=== PATIENT | male | born 1995 | race Caucasian/White ===

== ENCOUNTER → 2018-06-06 | Outpatient (CLI) | payer OTHER ==
[2018-06-06 17:50] LABS: RHEUMATOID FACTOR QUANT 19.2 IU/ML (<15.0)
[2018-06-06 18:03] LABS: ERYTHROCYTE SEDIMENTATION RATE 1 mm/hr (0-15)
[2018-06-12 01:40] LABS: ANCA-ATYPICAL <1:20 titer (Neg:<1:20); ANGIOTENSIN 1 CONVERTING ENZYM 32 U/L (14-82); ANTINUCLEAR ANTIBODIES DIRECT Negative (Negative); ASPERGILLUS FLAVUS ABY Negative (Neg:<1:1); ASPERGILLUS FUMIGATUS ABY Negative (Neg:<1:1); ASPERGILLUS NIGER ABY Negative (Neg:<1:1); BLASTOMYCES ANTIBODY LEVEL Negative (Neg:<1:1); COCCIDIOMYCOSIS ANTIBODY 0.3 IV (<=0.9); CRYPTOCOCCUS ANTIGEN SER Negative (Negative); CYTOPLASMIC NEUTROP AB ANCA-C <1:20 titer (Neg:<1:20); HISTOPLASMOSIS ANTIBODY Negative (Neg:<1:1); PERINUCLEAR AB ANCA-P <1:20 titer (Neg:<1:20); SJOGREN'S ANTI SS-A <0.2 AI (0.0-0.9); SJOGREN'S ANTI SS-B <0.2 AI (0.0-0.9)
[2018-06-13 14:11] LABS: ASPERGILLUS FUMIGATUS AB Negative (Negative); AUREOBASIDIUM PULLULANS Negative (Negative); MICROPOLYSPORA FAENI AB Negative (Negative); PIGEON SERUM AB Negative (Negative); THERMOACTINOMYCES SACCHARI Negative (Negative); THERMOACTINOMYCES VULGARIS Negative (Negative)
== END ==
LOC: M SMT 15:18
DX: R91.8 Other nonspecific abnormal finding of lung field (principal)

== ENCOUNTER → 2018-06-17 | Outpatient (CLI) | payer OTHER ==
[2018-06-17 17:32] LABS: ALBUMIN/GLOBULIN RATIO 1.79 (1.00-1.93); ALKALINE PHOSPHATASE 165 U/L (45-117); ALT/SGPT 64 U/L (12-78); ANION GAP 10 MEQ/L (8-16); AST/SGOT 37 U/L (7-37); BILIRUBIN,TOTAL 0.7 MG/DL (0.2-1.0); BLOOD UREA NITROGEN 14 MG/DL (7-18); CALCIUM LEVEL 12.5 MG/DL (8.5-10.1); CARBON DIOXIDE LEVEL 25 MEQ/L (21-32); CHLORIDE LEVEL 105 MEQ/L (98-107); CREATININE FOR GFR 0.92 MG/DL (0.70-1.30); GLOMERULAR FILTRATION RATE > 60.0 (>60); GLUCOSE, FASTING 87 MG/DL (70-100); LDH LACTATE DEHYDROGENASE 221 U/L (87-241); POTASSIUM SERUM 4.6 MEQ/L (3.5-5.1); SODIUM LEVEL 140 MEQ/L (136-145); TOTAL PROTEIN 7.8 GM/DL (6.4-8.2); URIC ACID 7.8 MG/DL (3.5-7.2)
[2018-06-17 17:46] LABS: BASO # 0.1 10^3/uL (0.0-0.2); BASO % 0.7 % (0.0-1.0); EOS # 0.1 10^3/uL (0.0-0.50); EOS % 0.9 % (0.0-3.0); HEMATOCRIT 52.5 % (42.0-52.0); HEMOGLOBIN 17.6 g/dl (13.5-17.5); LYMPH # 2.7 10^3/uL (1.5-6.5); LYMPH % 26.9 % (24.0-44.0); MEAN CORPUSCULAR HEMOGLOBIN 30.2 pg (27.0-33.0); MEAN CORPUSCULAR HGB CONC 33.5 g/dl (32.0-36.5); MEAN CORPUSCULAR VOLUME 90.2 fl (80.0-96.0); MONO # 0.9 10^3/uL (0.0-0.8); MONO % 8.8 % (0.0-5.0); NEUTROPHILS # 6.1 10^3/uL (1.8-7.7); NEUTROPHILS % 61.7 % (36.0-66.0); PLATELET COUNT, AUTOMATED 351 10^3/uL (150-450); RED BLOOD COUNT 5.82 10^6/uL (4.30-6.10); RED CELL DISTRIBUTION WIDTH 12.6 % (11.5-14.5); WHITE BLOOD COUNT 9.8 10^3/uL (4.0-10.0)
[2018-06-17 18:07] LABS: INR 0.91; PROTHROMBIN TIME 12.4 SECONDS (12.1-14.4)
[2018-06-20 00:14] LABS: CYCLIC CITRULLINATED PEPTIDE 12 units (0-19)
== END ==
LOC: M SMT 13:36
DX: R91.8 Other nonspecific abnormal finding of lung field (principal)
CPT/HCPCS: 83615

== ENCOUNTER → 2018-06-21 | Outpatient (CLI) | payer OTHER | LOC: M RAD 07:28 | DX: R91.8 Other nonspecific abnormal finding of lung field (principal) ==

== ENCOUNTER 2018-06-28 10:06 | Inpatient (IN) | payer OTHER ==
[~2018-06-28 10:06] MED LIST: KETOROLAC 60 MG/2 ML VIAL (J1885) As Ordered; LIDOCAINE 1% MDV 20ML VIAL SQ; LIDOCAINE 2% INJ 100 MG/5 ML SDV (FOR ANES.) As Ordered; ONDANSETRON 4MG/2ML VIAL (J2405) As Ordered; PROPOFOL 200 MG/20 ML VIAL As Ordered; ROCURONIUM BROMIDE 50 MG/5 ML VIAL As Ordered; dexameTHASONE 4 MG/ML 1ML VIAL (J1100) As Ordered
[2018-06-28] MEDS: CETACAINE SPRAY 5GM As Ordered (11:15)
[2018-06-28] MEDS ORDERED: MIDAZOLAM INJ 2 MG/2 ML VIAL (J2250) As Ordered ×4 (12:07→16:37)
[2018-06-28] MEDS ORDERED: fentaNYL 250 MCG/5 ML INJECTION (J3010) As Ordered (12:07)
[2018-06-28] MEDS ORDERED: SUGAMMADEX SODIUM 500 MG/5 ML VIAL (BRIDION) As Ordered (12:07)
[2018-06-28] MEDS ORDERED: ALBUTEROL SULFATE 2.5 MG/0.5 ML INH NEB SOLN As Ordered (12:35)
[2018-06-28] MEDS: LR 1,000 ML IV ×2 (12:46→13:15)
[2018-06-28] MEDS: ALBUTEROL SULFATE 2.5 MG/0.5 ML INH NEB SOLN INH (12:46)
[2018-06-28] MEDS ORDERED: ACETAMINOPHEN TAB 650MG DOSE (2X325MG) PO (13:00)
[2018-06-28 13:12] LABS: BASO % 0.3 % (0.0-1.0); EOS % 0.1 % (0.0-3.0); HEMATOCRIT 50.8 % (42.0-52.0); HEMOGLOBIN 17.5 g/dl (13.5-17.5); IMMATURE GRANULOCYTE % 0.9 % (0-3.0); LYMPH # 1.4 10^3/uL (1.5-6.5); LYMPH % 13.7 % (24.0-44.0); MEAN CORPUSCULAR HEMOGLOBIN 30.5 pg (27.0-33.0); MEAN CORPUSCULAR HGB CONC 34.4 g/dl (32.0-36.5); MEAN CORPUSCULAR VOLUME 88.7 fl (80.0-96.0); MONO # 0.3 10^3/uL (0.0-0.8); MONO % 3.2 % (0.0-5.0); NEUTROPHILS # 8.6 10^3/uL (1.8-7.7); NEUTROPHILS % 81.8 % (36.0-66.0); PLATELET COUNT, AUTOMATED 326 10^3/uL (150-450); RED BLOOD COUNT 5.73 10^6/uL (4.30-6.10); RED CELL DISTRIBUTION WIDTH 12.4 % (11.5-14.5); WHITE BLOOD COUNT 10.5 10^3/uL (4.0-10.0)
[2018-06-28] MEDS ORDERED: ONDANSETRON 4MG/2ML VIAL (J2405) IV ×2 (13:15→17:15)
[2018-06-28] MEDS ORDERED: METOCLOPRAMIDE INJ 10MG/2ML VIAL (J2765) IV (13:15)
[2018-06-28] MEDS ORDERED: MEPERIDINE INJ 25 MG/ML VIAL (J2175) IV (13:15)
[2018-06-28] MEDS ORDERED: PERCOCET 5MG/325MG TAB PO (13:15)
[2018-06-28] MEDS ORDERED: fentaNYL 100 MCG/2 ML INJECTION (J3010) IV (13:15)
[2018-06-28 13:21] LABS: INR 1.04; PROTHROMBIN TIME 13.7 SECONDS (12.1-14.4)
[2018-06-28 14:01] LABS: ALBUMIN 4.2 GM/DL (3.2-5.2); ALBUMIN/GLOBULIN RATIO 1.31 (1.00-1.93); ALKALINE PHOSPHATASE 170 U/L (45-117); ALT/SGPT 50 U/L (12-78); ANION GAP 9 MEQ/L (8-16); AST/SGOT 23 U/L (7-37); BLOOD UREA NITROGEN 14 MG/DL (7-18); CALCIUM LEVEL 12.2 MG/DL (8.5-10.1); CARBON DIOXIDE LEVEL 24 MEQ/L (21-32); CHLORIDE LEVEL 108 MEQ/L (98-107); CK-MB VALUE MASS < 1.0 NG/ML (<3.6); CPK CREATINE PHOSPHOKINASE 85 U/L (39-308); CREATININE FOR GFR 1.11 MG/DL (0.70-1.30); GLOMERULAR FILTRATION RATE > 60.0 (>60); GLUCOSE, FASTING 96 MG/DL (70-100); MB/CK RELATIVE INDEX 1.18 (< OR =4); POTASSIUM SERUM 4.5 MEQ/L (3.5-5.1); SODIUM LEVEL 141 MEQ/L (136-145); TOTAL PROTEIN 7.4 GM/DL (6.4-8.2); TROPONIN I < 0.02 NG/ML (< 0.10)
[2018-06-28 16:05] LABS: SOURCE RIGHT UPPER LOBE
[2018-06-28 16:06] LABS: APPEARANCE CLEAR (CLEAR); COLOR COLORLESS (COLORLESS)
[2018-06-28 16:12] LABS: BAL DIFF IF INDICATED? YES (NO); BAL WBC 78 CELLS/uL (0-10); DILUTION FACTOR 5; WBC BAL COUNTED 14
[2018-06-28 16:13] LABS: APPEARANCE CLEAR (CLEAR); COLOR COLORLESS (COLORLESS); SOURCE LEFT LOWER LOBE
[2018-06-28 16:14] LABS: BAL DIFF IF INDICATED? YES (NO); BAL WBC 53 CELLS/uL (0-10); DILUTION FACTOR 6; WBC BAL COUNTED 8
[2018-06-28 16:23] LABS: MONOCYTES/MACROPHAGES, BAL 17 %
[2018-06-28 16:30] LABS: MONOCYTES/MACROPHAGES, BAL 20 %
[2018-06-28] MEDS ORDERED: FLUMAZENIL 0.5 MG/5 ML VIAL As Ordered (16:36)
[2018-06-28] MEDS ORDERED: KETOROLAC 30 MG/ML VIAL (J1885) As Ordered (17:10)
[2018-06-28] MEDS ORDERED: LEVALBUTEROL 1.25 MG/0.5 ML CONCENTRATE NEB NEB (17:15)
[2018-06-28] MEDS ORDERED: BISACODYL 10 MG SUPP PR (17:15)
[2018-06-28] MEDS: MIDAZOLAM INJ 2 MG/2 ML VIAL (J2250) IV (17:56)
[2018-06-28] MEDS: KETOROLAC 30 MG/ML VIAL (J1885) IV (17:57)
[2018-06-28] MEDS: LIDOCAINE 1% MDV 20ML VIAL SC (17:58)
[2018-06-28] MEDS: KCL 20MEQ IN D5/NS 1000ML 1,000 ML IV (17:59)
[2018-06-28] MEDS: PERCOCET 5MG/325MG TAB PO (18:43)
[2018-06-28] MEDS: DOCUSATE SODIUM 100 MG CAP PO (20:03)
[2018-06-28] MEDS: NORCO, ANEXSIA 5/325MG TABLET (HYDROcodone/ACETAMINOPHEN) PO (20:04)
[2018-06-28] MEDS: LEVALBUTEROL 1.25 MG/0.5 ML CONCENTRATE NEB NEB (20:17)
[2018-06-28 21:34] LABS: CK-MB VALUE MASS < 1.0 NG/ML (<3.6); CPK CREATINE PHOSPHOKINASE 128 U/L (39-308); MB/CK RELATIVE INDEX 0.78 (< OR =4); TROPONIN I < 0.02 NG/ML (< 0.10)
[2018-06-29] MEDS: LEVALBUTEROL 1.25 MG/0.5 ML CONCENTRATE NEB NEB ×4 (01:17→19:50)
[2018-06-29] MEDS: KETOROLAC 30 MG/ML VIAL (J1885) IV ×4 (06:00→17:42)
[2018-06-29 06:01] LABS: BASO % 0.2 % (0.0-1.0); EOS % 0.2 % (0.0-3.0); HEMATOCRIT 44.2 % (42.0-52.0); IMMATURE GRANULOCYTE % 0.7 % (0-3.0); LYMPH # 2.9 10^3/uL (1.5-6.5); LYMPH % 19.1 % (24.0-44.0); MEAN CORPUSCULAR HEMOGLOBIN 30.5 pg (27.0-33.0); MEAN CORPUSCULAR HGB CONC 34.6 g/dl (32.0-36.5); MEAN CORPUSCULAR VOLUME 88.2 fl (80.0-96.0); MONO # 1.7 10^3/uL (0.0-0.8); MONO % 10.9 % (0.0-5.0); NEUTROPHILS # 10.5 10^3/uL (1.8-7.7); NEUTROPHILS % 68.9 % (36.0-66.0); PLATELET COUNT, AUTOMATED 307 10^3/uL (150-450); RED BLOOD COUNT 5.01 10^6/uL (4.30-6.10); RED CELL DISTRIBUTION WIDTH 12.7 % (11.5-14.5); WHITE BLOOD COUNT 15.2 10^3/uL (4.0-10.0)
[2018-06-29 06:14] LABS: HEMOGLOBIN 15.3 g/dl (13.5-17.5)
[2018-06-29 06:27] LABS: ANION GAP 8 MEQ/L (8-16); BLOOD UREA NITROGEN 15 MG/DL (7-18); CALCIUM LEVEL 11.2 MG/DL (8.5-10.1); CARBON DIOXIDE LEVEL 25 MEQ/L (21-32); CHLORIDE LEVEL 106 MEQ/L (98-107); CK-MB VALUE MASS < 1.0 NG/ML (<3.6); CPK CREATINE PHOSPHOKINASE 111 U/L (39-308); CREATININE FOR GFR 1.02 MG/DL (0.70-1.30); GLOMERULAR FILTRATION RATE > 60.0 (>60); GLUCOSE, FASTING 103 MG/DL (70-100); POTASSIUM SERUM 3.9 MEQ/L (3.5-5.1); SODIUM LEVEL 139 MEQ/L (136-145); TROPONIN I < 0.02 NG/ML (< 0.10)
[2018-06-29] MEDS: MOM 30ML SUSPENSION UDC PO (09:00)
[2018-06-29] MEDS: DOCUSATE SODIUM 100 MG CAP PO ×2 (09:00→20:45)
[2018-06-29] MEDS: ENOXAPARIN 40 MG/0.4 ML SYRINGE (J1650) SC (09:12)
[2018-06-29] MEDS: PANTOPRAZOLE 40MG TAB (PROTONIX) PO (09:12)
[2018-06-29] MEDS ORDERED: SLF 3 ML SYR IV (12:15)
[2018-06-29] MEDS: SLF 3 ML SYR IV ×2 (12:33→21:24)
[2018-06-29] MEDS ORDERED: PERCOCET 5MG/325MG TAB As Ordered (14:11)
[2018-06-29] MEDS ORDERED: LIDOCAINE 1% MDV 20ML VIAL As Ordered (14:36)
[2018-06-30] MEDS: LEVALBUTEROL 1.25 MG/0.5 ML CONCENTRATE NEB NEB ×3 (01:56→20:00)
[2018-06-30] MEDS: SLF 3 ML SYR IV ×3 (05:17→21:08)
[2018-06-30] MEDS: KETOROLAC 30 MG/ML VIAL (J1885) IV ×4 (06:00→17:42)
[2018-06-30 06:17] LABS: BASO # 0.1 10^3/uL (0.0-0.2); BASO % 0.4 % (0.0-1.0); EOS # 0.1 10^3/uL (0.0-0.50); EOS % 0.7 % (0.0-3.0); HEMATOCRIT 45.5 % (42.0-52.0); HEMOGLOBIN 15.3 g/dl (13.5-17.5); IMMATURE GRANULOCYTE % 0.7 % (0-3.0); LYMPH # 2.1 10^3/uL (1.5-6.5); MEAN CORPUSCULAR HEMOGLOBIN 30.5 pg (27.0-33.0); MEAN CORPUSCULAR HGB CONC 33.6 g/dl (32.0-36.5); MEAN CORPUSCULAR VOLUME 90.6 fl (80.0-96.0); MONO # 1.4 10^3/uL (0.0-0.8); MONO % 11.2 % (0.0-5.0); NEUTROPHILS # 8.6 10^3/uL (1.8-7.7); PLATELET COUNT, AUTOMATED 299 10^3/uL (150-450); RED BLOOD COUNT 5.02 10^6/uL (4.30-6.10); RED CELL DISTRIBUTION WIDTH 12.8 % (11.5-14.5); WHITE BLOOD COUNT 12.3 10^3/uL (4.0-10.0)
[2018-06-30 06:44] LABS: ANION GAP 5 MEQ/L (8-16); BLOOD UREA NITROGEN 14 MG/DL (7-18); CARBON DIOXIDE LEVEL 28 MEQ/L (21-32); CHLORIDE LEVEL 108 MEQ/L (98-107); GLOMERULAR FILTRATION RATE > 60.0 (>60); GLUCOSE, FASTING 100 MG/DL (70-100); POTASSIUM SERUM 4.8 MEQ/L (3.5-5.1); SODIUM LEVEL 141 MEQ/L (136-145)
[2018-06-30] MEDS: PANTOPRAZOLE 40MG TAB (PROTONIX) PO (08:46)
[2018-06-30] MEDS: DOCUSATE SODIUM 100 MG CAP PO ×2 (08:46→20:07)
[2018-06-30] MEDS: ENOXAPARIN 40 MG/0.4 ML SYRINGE (J1650) SC (08:46)
[2018-06-30] MEDS: MOM 30ML SUSPENSION UDC PO (08:46)
[2018-06-30 15:03] LABS: CC BAL DIFF EXAM CYTOCENTRIFUGE
[2018-06-30 15:04] LABS: CC BAL DIFF EXAM CYTOCENTRIFUGE
[2018-07-01] MEDS: LEVALBUTEROL 1.25 MG/0.5 ML CONCENTRATE NEB NEB ×4 (02:00→19:45)
[2018-07-01] MEDS: SLF 3 ML SYR IV ×3 (05:46→21:01)
[2018-07-01 05:58] LABS: BASO # 0.1 10^3/uL (0.0-0.2); BASO % 0.3 % (0.0-1.0); EOS # 0.3 10^3/uL (0.0-0.50); EOS % 2.1 % (0.0-3.0); HEMATOCRIT 46.9 % (42.0-52.0); HEMOGLOBIN 15.6 g/dl (13.5-17.5); IMMATURE GRANULOCYTE % 1.1 % (0-3.0); LYMPH # 1.8 10^3/uL (1.5-6.5); LYMPH % 12.4 % (24.0-44.0); MEAN CORPUSCULAR HEMOGLOBIN 30.2 pg (27.0-33.0); MEAN CORPUSCULAR HGB CONC 33.3 g/dl (32.0-36.5); MEAN CORPUSCULAR VOLUME 90.9 fl (80.0-96.0); MONO # 1.7 10^3/uL (0.0-0.8); MONO % 11.9 % (0.0-5.0); NEUTROPHILS # 10.5 10^3/uL (1.8-7.7); NEUTROPHILS % 72.2 % (36.0-66.0); PLATELET COUNT, AUTOMATED 286 10^3/uL (150-450); RED BLOOD COUNT 5.16 10^6/uL (4.30-6.10); RED CELL DISTRIBUTION WIDTH 12.6 % (11.5-14.5); WHITE BLOOD COUNT 14.5 10^3/uL (4.0-10.0)
[2018-07-01] MEDS: KETOROLAC 30 MG/ML VIAL (J1885) IV ×4 (06:00→17:46)
[2018-07-01 06:17] LABS: ANION GAP 5 MEQ/L (8-16); BLOOD UREA NITROGEN 14 MG/DL (7-18); CARBON DIOXIDE LEVEL 27 MEQ/L (21-32); CHLORIDE LEVEL 108 MEQ/L (98-107); CREATININE FOR GFR 0.95 MG/DL (0.70-1.30); GLOMERULAR FILTRATION RATE > 60.0 (>60); GLUCOSE, FASTING 99 MG/DL (70-100); POTASSIUM SERUM 4.4 MEQ/L (3.5-5.1); SODIUM LEVEL 140 MEQ/L (136-145)
[2018-07-01] MEDS: PANTOPRAZOLE 40MG TAB (PROTONIX) PO (08:45)
[2018-07-01] MEDS: ENOXAPARIN 40 MG/0.4 ML SYRINGE (J1650) SC (08:45)
[2018-07-01] MEDS: DOCUSATE SODIUM 100 MG CAP PO ×2 (08:45→20:06)
[2018-07-01] MEDS: MOM 30ML SUSPENSION UDC PO (08:45)
[2018-07-02] MEDS: KETOROLAC 30 MG/ML VIAL (J1885) IV ×4 (00:02→18:11)
[2018-07-02] MEDS: LEVALBUTEROL 1.25 MG/0.5 ML CONCENTRATE NEB NEB ×3 (02:00→20:00)
[2018-07-02] MEDS: SLF 3 ML SYR IV ×3 (05:14→22:00)
[2018-07-02 05:36] LABS: BASO # 0.1 10^3/uL (0.0-0.2); BASO % 0.7 % (0.0-1.0); EOS # 0.5 10^3/uL (0.0-0.50); EOS % 3.8 % (0.0-3.0); HEMATOCRIT 45.8 % (42.0-52.0); HEMOGLOBIN 15.5 g/dl (13.5-17.5); IMMATURE GRANULOCYTE % 0.8 % (0-3.0); LYMPH # 2.3 10^3/uL (1.5-6.5); LYMPH % 19.6 % (24.0-44.0); MEAN CORPUSCULAR HEMOGLOBIN 30.7 pg (27.0-33.0); MEAN CORPUSCULAR HGB CONC 33.8 g/dl (32.0-36.5); MEAN CORPUSCULAR VOLUME 90.7 fl (80.0-96.0); MONO # 1.7 10^3/uL (0.0-0.8); MONO % 13.9 % (0.0-5.0); NEUTROPHILS # 7.3 10^3/uL (1.8-7.7); NEUTROPHILS % 61.2 % (36.0-66.0); PLATELET COUNT, AUTOMATED 293 10^3/uL (150-450); RED BLOOD COUNT 5.05 10^6/uL (4.30-6.10); RED CELL DISTRIBUTION WIDTH 12.6 % (11.5-14.5); WHITE BLOOD COUNT 11.8 10^3/uL (4.0-10.0)
[2018-07-02 06:04] LABS: ANION GAP 5 MEQ/L (8-16); BLOOD UREA NITROGEN 18 MG/DL (7-18); CALCIUM LEVEL 11.5 MG/DL (8.5-10.1); CARBON DIOXIDE LEVEL 29 MEQ/L (21-32); CHLORIDE LEVEL 110 MEQ/L (98-107); CREATININE FOR GFR 1.18 MG/DL (0.70-1.30); GLOMERULAR FILTRATION RATE > 60.0 (>60); GLUCOSE, FASTING 104 MG/DL (70-100); POTASSIUM SERUM 4.3 MEQ/L (3.5-5.1); SODIUM LEVEL 144 MEQ/L (136-145)
[2018-07-02] MEDS: DOCUSATE SODIUM 100 MG CAP PO ×2 (09:07→20:14)
[2018-07-02] MEDS: ENOXAPARIN 40 MG/0.4 ML SYRINGE (J1650) SC (09:07)
[2018-07-02] MEDS: MOM 30ML SUSPENSION UDC PO (09:07)
[2018-07-02] MEDS: PANTOPRAZOLE 40MG TAB (PROTONIX) PO (09:09)
[2018-07-02] MEDS: NORCO, ANEXSIA 5/325MG TABLET (HYDROcodone/ACETAMINOPHEN) PO (12:16)
[2018-07-03] MEDS: KETOROLAC 30 MG/ML VIAL (J1885) IV ×3 (00:17→12:37)
[2018-07-03] MEDS: LEVALBUTEROL 1.25 MG/0.5 ML CONCENTRATE NEB NEB ×2 (01:28→20:00)
[2018-07-03 05:00] LABS: BASO # 0.1 10^3/uL (0.0-0.2); BASO % 0.5 % (0.0-1.0); EOS # 0.7 10^3/uL (0.0-0.50); HEMATOCRIT 44.9 % (42.0-52.0); IMMATURE GRANULOCYTE % 0.7 % (0-3.0); LYMPH # 3.3 10^3/uL (1.5-6.5); LYMPH % 24.3 % (24.0-44.0); MEAN CORPUSCULAR HEMOGLOBIN 30.1 pg (27.0-33.0); MEAN CORPUSCULAR HGB CONC 33.4 g/dl (32.0-36.5); MONO # 1.5 10^3/uL (0.0-0.8); MONO % 11.4 % (0.0-5.0); NEUTROPHILS # 7.9 10^3/uL (1.8-7.7); NEUTROPHILS % 58.1 % (36.0-66.0); PLATELET COUNT, AUTOMATED 310 10^3/uL (150-450); RED BLOOD COUNT 4.99 10^6/uL (4.30-6.10); RED CELL DISTRIBUTION WIDTH 12.4 % (11.5-14.5); WHITE BLOOD COUNT 13.5 10^3/uL (4.0-10.0)
[2018-07-03 05:22] LABS: ANION GAP 5 MEQ/L (8-16); BLOOD UREA NITROGEN 20 MG/DL (7-18); CARBON DIOXIDE LEVEL 28 MEQ/L (21-32); CHLORIDE LEVEL 109 MEQ/L (98-107); CREATININE FOR GFR 1.17 MG/DL (0.70-1.30); GLOMERULAR FILTRATION RATE > 60.0 (>60); GLUCOSE, FASTING 101 MG/DL (70-100); POTASSIUM SERUM 4.3 MEQ/L (3.5-5.1); SODIUM LEVEL 142 MEQ/L (136-145)
[2018-07-03] MEDS: SLF 3 ML SYR IV ×3 (05:29→22:00)
[2018-07-03] MEDS: ENOXAPARIN 40 MG/0.4 ML SYRINGE (J1650) SC (08:58)
[2018-07-03] MEDS: MOM 30ML SUSPENSION UDC PO (08:58)
[2018-07-03] MEDS: PANTOPRAZOLE 40MG TAB (PROTONIX) PO (09:37)
[2018-07-03] MEDS: DOCUSATE SODIUM 100 MG CAP PO ×2 (09:37→20:01)
[2018-07-04] MEDS: LEVALBUTEROL 1.25 MG/0.5 ML CONCENTRATE NEB NEB ×3 (01:18→14:00)
[2018-07-04] MEDS: SLF 3 ML SYR IV (05:23)
[2018-07-04 06:11] LABS: BASO # 0.1 10^3/uL (0.0-0.2); BASO % 0.5 % (0.0-1.0); EOS # 0.6 10^3/uL (0.0-0.50); EOS % 5.2 % (0.0-3.0); HEMATOCRIT 43.5 % (42.0-52.0); HEMOGLOBIN 14.8 g/dl (13.5-17.5); IMMATURE GRANULOCYTE % 0.8 % (0-3.0); LYMPH # 2.5 10^3/uL (1.5-6.5); LYMPH % 23.2 % (24.0-44.0); MEAN CORPUSCULAR HEMOGLOBIN 30.1 pg (27.0-33.0); MEAN CORPUSCULAR VOLUME 88.4 fl (80.0-96.0); MONO # 1.1 10^3/uL (0.0-0.8); MONO % 9.9 % (0.0-5.0); NEUTROPHILS # 6.4 10^3/uL (1.8-7.7); NEUTROPHILS % 60.4 % (36.0-66.0); PLATELET COUNT, AUTOMATED 317 10^3/uL (150-450); RED BLOOD COUNT 4.92 10^6/uL (4.30-6.10); RED CELL DISTRIBUTION WIDTH 12.4 % (11.5-14.5); WHITE BLOOD COUNT 10.6 10^3/uL (4.0-10.0)
[2018-07-04 06:36] LABS: ANION GAP 5 MEQ/L (8-16); BLOOD UREA NITROGEN 17 MG/DL (7-18); CALCIUM LEVEL 11.2 MG/DL (8.5-10.1); CARBON DIOXIDE LEVEL 28 MEQ/L (21-32); CHLORIDE LEVEL 111 MEQ/L (98-107); CREATININE FOR GFR 0.99 MG/DL (0.70-1.30); GLOMERULAR FILTRATION RATE > 60.0 (>60); GLUCOSE, FASTING 101 MG/DL (70-100); POTASSIUM SERUM 3.9 MEQ/L (3.5-5.1); SODIUM LEVEL 144 MEQ/L (136-145)
[2018-07-04] MEDS: DOCUSATE SODIUM 100 MG CAP PO (09:00)
[2018-07-04] MEDS: ENOXAPARIN 40 MG/0.4 ML SYRINGE (J1650) SC (09:00)
[2018-07-04] MEDS: MOM 30ML SUSPENSION UDC PO (09:00)
[2018-07-04] MEDS: PANTOPRAZOLE 40MG TAB (PROTONIX) PO (09:00)
[2018-07-04 10:19] LABS: PTH INTACT 237.6 PG/ML (18.5-88.0)
== END 2018-07-04 15:36 | disposition home or self-care (01) | DRG 167 ==
LOC: M SDC 12:50 → M PCU 12:51
PROC: 0BBC8ZX Excision of Right Upper Lung Lobe, Via Natural or Artificial Opening Endoscopic, Diagnostic (ICD-10-PCS; principal; 2018-06-28 11:00)
PROC: 07B74ZX Excision of Thorax Lymphatic, Percutaneous Endoscopic Approach, Diagnostic (ICD-10-PCS; 2018-06-28 11:00)
PROC: 0B948ZX Drainage of Right Upper Lobe Bronchus, Via Natural or Artificial Opening Endoscopic, Diagnostic (ICD-10-PCS; 2018-06-28 11:00)
PROC: 0W9930Z Drainage of Right Pleural Cavity with Drainage Device, Percutaneous Approach (ICD-10-PCS; 2018-06-28 11:00)
PROC: 0B9D3ZX Drainage of Right Middle Lung Lobe, Percutaneous Approach, Diagnostic (ICD-10-PCS; 2018-06-28 11:00)
PROC: BB12ZZZ Fluoroscopy of Right Lung (ICD-10-PCS; 2018-06-28 11:00)
DX: R91.8 Other nonspecific abnormal finding of lung field (principal); J93.83 Other pneumothorax; J98.2 Interstitial emphysema; I10 Essential (primary) hypertension; J30.2 Other seasonal allergic rhinitis; F17.210 Nicotine dependence, cigarettes, uncomplicated; E83.52 Hypercalcemia; R59.0 Localized enlarged lymph nodes

== ENCOUNTER → 2018-07-07 | Outpatient (CLI) | payer OTHER | LOC: M SMT 11:04 | DX: J95.811 Postprocedural pneumothorax (principal) | CPT/HCPCS: 71046 ==

== ENCOUNTER → 2018-08-30 | Outpatient (CLI) | payer OTHER ==
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
== END ==
LOC: M RAD 10:39
PROVIDERS: ATTEND Internal Medicine Pulmonary Disease
DX: R91.8 Other nonspecific abnormal finding of lung field (principal)

== ENCOUNTER 2019-02-16 23:03 | Emergency (ER) | payer OTHER ==
[~2019-02-16] VITALS: Ht 172.7 cm; Wt 110.3 kg
[2019-02-16 23:04] VITALS: BP 174/80
[2019-02-17 00:17] LABS: BASO # 0.1 10^3/uL (0.0-0.2); BASO % 0.5 % (0.0-1.0); EOS % 0.3 % (0.0-3.0); HEMATOCRIT 47.1 % (42.0-52.0); LYMPH # 2.6 10^3/uL (1.5-6.5); LYMPH % 24.5 % (24.0-44.0); MEAN CORPUSCULAR HEMOGLOBIN 30.6 pg (27.0-33.0); MEAN CORPUSCULAR VOLUME 90.1 fl (80.0-96.0); MONO # 0.9 10^3/uL (0.0-0.8); MONO % 8.7 % (0.0-5.0); NEUTROPHILS # 6.9 10^3/uL (1.8-7.7); NEUTROPHILS % 65.4 % (36.0-66.0); PLATELET COUNT, AUTOMATED 342 10^3/uL (150-450); RED BLOOD COUNT 5.23 10^6/uL (4.30-6.10); WHITE BLOOD COUNT 10.5 10^3/uL (4.0-10.0)
[2019-02-17 00:27] LABS: ALBUMIN 4.6 GM/DL (3.2-5.2); ALT/SGPT 36 U/L (12-78); BILIRUBIN,DIRECT 0.3 MG/DL (0.0-0.2); BILIRUBIN,TOTAL 1.1 MG/DL (0.2-1.0); BLOOD UREA NITROGEN 13 MG/DL (7-18); CALCIUM LEVEL 9.1 MG/DL (8.5-10.1); CARBON DIOXIDE LEVEL 26 MEQ/L (21-32); CHLORIDE LEVEL 106 MEQ/L (98-107); CREATININE FOR GFR 0.98 MG/DL (0.70-1.30); GLOMERULAR FILTRATION RATE > 60.0 (>60); GLUCOSE, FASTING 101 MG/DL (70-100); LIPASE 116 U/L (73-393); POTASSIUM SERUM 3.8 MEQ/L (3.5-5.1); SODIUM LEVEL 141 MEQ/L (136-145); TOTAL PROTEIN 7.9 GM/DL (6.4-8.2)
--- NOTE | 2019-02-17 00:58 | REPVR ---
EXAM: US Scrotum and US Duplex Artery and Vein, Scrotum, Complete EXAM DATE/TIME: 02/17/2019 12:37 AM CLINICAL HISTORY: 23 years old, male; Flank pain and scrotum pain; Additional info: Left testicle pain TECHNIQUE: Imaging protocol: Real-time ultrasound of the scrotum. Real-time duplex ultrasound scan of the arterial and venous flow of the scrotum with B-mode, color Doppler flow and spectral waveform analysis. Complete exam. COMPARISON: US SCROTAL - OUTSIDE PRIOR 06/05/2018 12:00 AM FINDINGS: Right Testicle: Right testicle measures 4.7 x 2.2 x 3 cm. Normal waveforms. Left Testicle: Left testicle measures 4.8 x 2.4 x 3 cm. Punctate parenchymal calcification is noted. Normal waveforms. Epididymides: Right epididymal head measures 7 mm in diameter. Left epididymal head measures 5 mm in diameter. Scrotum: Normal. IMPRESSION: No evidence of testicular torsion bilaterally. Electronically signed by: Rojas Mahoney On 02/17/2019 00:57:54 AM
--- NOTE | 2019-02-17 01:15 | REPVR ---
EXAM: CT Abdomen and Pelvis Without Contrast EXAM DATE/TIME: 02/17/2019 12:19 AM CLINICAL HISTORY: 23 years old, male; Abdominal pain; Flank; Left; Additional info: Left flank pain TECHNIQUE: Imaging protocol: Axial computed tomography images of the abdomen and pelvis without contrast. Coronal and sagittal reformatted images were created and reviewed. Radiation optimization: All CT scans at this facility use at least one of these dose optimization techniques: automated exposure control; mA and/or kV adjustment per patient size (includes targeted exams where dose is matched to clinical indication); or iterative reconstruction. COMPARISON: CT ABD/PELVIS W/O CONTRAST - OUTSIDE PRIOR 06/05/2018 12:00 AM FINDINGS: Lungs: Multiple stable bilateral pulmonary nodules. The largest nodule is seen in the right middle lobe measuring 1.2 cm in diameter. Liver: Mild hepatomegaly and steatosis. Gallbladder and bile ducts: Normal. No calcified stones. No ductal dilation. Pancreas: Normal. No ductal dilation. Spleen: Normal. No splenomegaly. Adrenals: Normal. No mass. Kidneys and ureters: Mild left hydronephrosis secondary to a 1 x 0.7 cm irregular calculus at the ureteropelvic junction. Nonobstructing right nephrolithiasis. Stomach and bowel: Normal. No obstruction. No mucosal thickening. Appendix: No evidence of appendicitis. Intraperitoneal space: Normal. No free air. No significant fluid collection. Vasculature: Normal. No abdominal aortic aneurysm. Lymph nodes: Normal. No enlarged lymph nodes. Bladder: Unremarkable as visualized. Reproductive: Unremarkable as visualized. Bones/joints: No acute fracture. No dislocation. Soft tissues: Unremarkable. IMPRESSION: Mild left hydronephrosis secondary to a 1 x 0.7 cm irregular calculus at the ureteropelvic junction. Multiple stable bilateral pulmonary nodules. The largest nodule is seen in the right middle lobe measuring 1.2 cm in diameter. These appear to have been previously biopsied. Correlate with clinical history. Electronically signed by: Rojas Mahoney On 02/17/2019 01:15:00 AM
[2019-02-17 01:58] LABS: CHLAMYDIA DNA AMPLIFICATION NEGATIVE (NEGATIVE); GC DNA AMPLIFICATION NEGATIVE (NEGATIVE)
[2019-02-17] MEDS ORDERED: NORCO 5/325MG TABLET (BULK FOR ED) PO ONE (02:00)
[2019-02-17] MEDS ORDERED: OXYC1TAB23 (12:30)
[2019-02-17] MEDS ORDERED: BACT800T5 PO (15:32)
[2019-02-17] MEDS ORDERED: HYDR-4514 PO (15:32)
[2019-02-17] MEDS ORDERED: OXYB5TAB10 PO (15:32)
--- NOTE | 2019-02-20 14:32 | ED PDOC ---
Post-Departure Follow-Up certiifed letter sent to pt re formal read of ct abd/p. see report. needs pcp to fu on pulmonary nodules. find out who pcp is and fax. if none [facility] to [facility], give number and fax there. dr hurt also faxed copy of ct abd/p for fu Jarrod Valenzuela MD Feb 20, 2019 14:32
== END 2019-02-17 02:00 | disposition home or self-care (01) ==
LOC: M ED 23:03
DX: N20.1 Calculus of ureter (principal); I10 Essential (primary) hypertension; R91.1 Solitary pulmonary nodule; F41.9 Anxiety disorder, unspecified

== ENCOUNTER 2019-02-17 11:40 | Day surgery (SDC) | payer OTHER ==
[~2019-02-17] VITALS: Ht 172.7 cm; Wt 108.4 kg
[2019-02-17] MEDS ORDERED: OXYC1TAB23 (12:30)
[2019-02-17] MEDS ORDERED: CONRAY-60 60% 50ML VIAL (Q9961) As Ordered ONE (13:35)
[2019-02-17] MEDS ORDERED: ONDANSETRON 4MG/2ML VIAL (J2405) As Ordered ONE (14:12)
[2019-02-17] MEDS ORDERED: LIDOCAINE 2% INJ 100 MG/5 ML SDV (FOR ANES.) As Ordered ONE (14:12)
[2019-02-17] MEDS ORDERED: fentaNYL 100 MCG/2 ML INJECTION (J3010) As Ordered ONE ×2 (14:12→14:24)
[2019-02-17] MEDS ORDERED: MIDAZOLAM INJ 2 MG/2 ML VIAL (J2250) As Ordered ONE (14:12)
[2019-02-17] MEDS ORDERED: dexameTHASONE 4 MG/ML 1ML VIAL (J1100) As Ordered ONE (14:12)
[2019-02-17] MEDS ORDERED: PROPOFOL 200 MG/20 ML VIAL As Ordered ONE (14:12)
[2019-02-17] MEDS ORDERED: HYDROMORPHONE HCL 0.5 MG/ 0.5 ML SYRINGE (J1170 PER 1) As Ordered ONE ×2 (15:22→15:29)
[2019-02-17] MEDS ORDERED: ACETAMINOPHEN 1000MG 100ML IV BTL (OFIRMEV) (J0131 PER 10MG) As Ordered ONE (15:24)
[2019-02-17] MEDS: HYDROMORPHONE HCL 0.5 MG/ 0.5 ML SYRINGE (J1170 PER 1) IV PRN ×3 (15:24→15:40)
[2019-02-17] MEDS ORDERED: METOCLOPRAMIDE INJ 10MG/2ML VIAL (J2765) As Ordered ONE (15:30)
[2019-02-17] MEDS ORDERED: OXYB5TAB10 PO (15:32)
[2019-02-17] MEDS ORDERED: BACT800T5 PO (15:32)
[2019-02-17] MEDS ORDERED: HYDR-4514 PO (15:32)
--- NOTE | 2019-02-17 15:42 | REP ---
Retrograde pyelogram: A series of eight intraoperative fluoroscopic views are performed during left ureteral stent placement. The final films demonstrate the proximal and distal stent pigtails to be in satisfactory positions. Fluoroscopic exposure time is 17 seconds. Fluoroscopic images are performed with last image hold technology and require no additional radiation. Electronically Signed by Vince Villaseñor MD 02/17/2019 03:34 P
[2019-02-17] MEDS ORDERED: METOCLOPRAMIDE INJ 10MG/2ML VIAL (J2765) IV PRN (15:45)
[2019-02-17] MEDS ORDERED: ONDANSETRON 4MG/2ML VIAL (J2405) IV PRN (15:45)
[2019-02-17] MEDS ORDERED: LR 1,000 ML IV SCH (15:45)
[2019-02-17] MEDS ORDERED: fentaNYL 100 MCG/2 ML INJECTION (J3010) IV PRN (15:45)
[2019-02-17] MEDS ORDERED: PERCOCET 5MG/325MG TAB PO PRN (15:45)
[2019-02-17] MEDS ORDERED: PHENAZOPYRIDINE 100 MG TAB PO ONE (16:00)
[2019-02-17] MEDS ORDERED: oxyBUTYnin 5 MG TAB PO ONE (16:00)
--- NOTE | 2019-02-17 16:09 | RO ---
DATE OF PROCEDURE: 02/17/2019 PREOPERATIVE DIAGNOSIS: Left renal stones. POSTOPERATIVE DIAGNOSIS: Left renal stones. PROCEDURE: Left ureteroscopic stone extraction with balloon dilation of ureter, laser lithotripsy and basket extraction of stone and stent placement. SURGEON: Dr. Mat Burr ANESTHESIA: General. INDICATION: This 23-year-old presented with severe colic. He has a past history of hyperparathyroidism and underwent parathyroidectomy with subsequent normalization of calcium about 6 months ago. He has passed a small stone on the left in the past and has been having intermittent symptoms for about 3 weeks before developing severe colic last night and presented to the emergency room where CT scan showed a slightly greater than 1 cm ureteropelvic junction stone on the left with a smaller peripheral stone in the right upper pole. There appeared also to be some possible sand in several of the left calices. We discussed options including ESWL with or without stent or ureteroscopic stent extraction due to the upcoming holiday the lithotriptor will not be here for approximately 3 weeks time. The patient wished to go ahead and have his stone treated. PROCEDURE: After the informed consent with the patient. He was taken to the operating room after anesthetic and he was prepped and draped in the usual manner. A 22-Estonian diagnostic cystoscope was advanced to the bladder and the bladder was inspected with the 37 degree lens. No mucosal abnormalities were noted. A wire was passed to the left kidney without difficulty. We were unable to traverse the ureteral orifice with the flexible ureteroscope and used a 12-Estonian 4 cm balloon dilating catheter to dilate this area under fluoroscopic control. We then were able to pass the ureteroscope to the kidney without difficulty or further need for dilation. The stone was encountered as were several small stones. They were all taken apart with the 270 micron laser fiber. Stones of all significant size were disintegrated using a dusting technique. We then used the encompass basket to sweep up fragments that we made an additional pass to reinspect the calices and remove a few additional fragments visualized. The ureter was carefully inspected and there was no significant ureteral injuries. Because of the dilatation of the ureteral orifice and length of procedure we did elect to leave the stent and this end passed a 6-Estonian universal stent over the safety guidewire, positioned it fluoroscopically in the kidney and bladder. The string was left attached. The bladder was emptied. Final stent position confirmed fluoroscopically. The patient to recovery in satisfactory condition. DISPOSITION: Pyridium 200 three times a day as needed dysuria, oxybutynin 5mg three times a day as needed spasms, Hydrocodone 1 by mouth every 4 hours as needed pain, #20. Diet as tolerated. Activity light. Followup in one week for office visit, stent removal. This will not require cystoscopy as he has an indwelling string.
[2019-02-17] MEDS ORDERED: NORCO, ANEXSIA 5/325MG TABLET (HYDROcodone/ACETAMINOPHEN) As Ordered ONE (16:33)
[2019-02-17] MEDS ORDERED: MORPHINE 4 MG/ML 1ML VIAL/SYRINGE (J2270) As Ordered ONE (16:41)
[2019-02-17] MEDS ORDERED: MORPHINE 10 MG/ML 1ML VIAL (J2270) IV PRN (17:00)
[2019-02-17] MEDS ORDERED: NORCO, ANEXSIA 5/325MG TABLET (HYDROcodone/ACETAMINOPHEN) PO PRN (17:00)
[2019-02-17] MEDS ORDERED: PROMETHAZINE 25 MG TAB PO ONE (18:00)
[2019-02-17 21:05] VITALS: BP 144/86
== END 2019-02-17 21:05 | disposition home or self-care (01) ==
LOC: M SDC 11:40
PROVIDERS: ATTEND Urology
DX: N20.1 Calculus of ureter (principal); I10 Essential (primary) hypertension; F41.9 Anxiety disorder, unspecified
CPT/HCPCS: 52341; 52356; 74420; 82360; 88300; C1769; C2617; J0690; J1100; J2250; J2270; J2405; J2765; J3010; Q9961

== ENCOUNTER → 2019-02-17 | Outpatient (REF) | payer OTHER ==
[~2019-02-17] MED LIST changes: +BACT800T5 PO; +HYDR-4514 PO; -KETOROLAC 60 MG/2 ML VIAL (J1885) As Ordered; -LIDOCAINE 1% MDV 20ML VIAL SQ; -LIDOCAINE 2% INJ 100 MG/5 ML SDV (FOR ANES.) As Ordered; -ONDANSETRON 4MG/2ML VIAL (J2405) As Ordered; +OXYB5TAB10 PO; +OXYC1TAB23; -PROPOFOL 200 MG/20 ML VIAL As Ordered; -ROCURONIUM BROMIDE 50 MG/5 ML VIAL As Ordered; -dexameTHASONE 4 MG/ML 1ML VIAL (J1100) As Ordered
== END ==
LOC: M SMT 13:35
PROVIDERS: ATTEND Urology
DX: N20.0 Calculus of kidney (principal)

== ENCOUNTER → 2019-03-22 | Outpatient (CLI) | payer OTHER ==
--- NOTE | 2019-03-22 20:34 | REP ---
CT abdomen and pelvis without IV or oral contrast: History: Kidney stone protocol. History: Kidney stone. Comparison study: February 17, 2019. This study showed mild left-sided hydronephrosis due to a 1 cm calculus at the left ureteropelvic junction. Findings: Preliminary digital armature winder radiographs demonstrate an unremarkable bowel gas pattern. There are multiple noncalcified pulmonary nodules again noted in the lung bases bilaterally. The largest of these is in the right middle lobe where there is a stable 13 mm nodule. No new nodule is appreciated when compared with the August 30, [address] study. No pleural effusion or upper abdominal ascites are seen. The liver and the spleen are normal in size and homogeneous in texture. No adrenal lesion is visible. No pancreatic abnormality is noted. The gallbladder is unremarkable. No abnormalities noted the right kidney. On the left, there are calcific fragments at the cortical medullary junction in the left kidney at its upper pole which may be residual stone fragments. The large UPJ stone previously noted is not seen today. No ureteral stone or hydronephrosis is observed. No bladder calculus is appreciated. There are one or two calcifications in the prostate gland. Small and large bowel loops are unremarkable. A normal appendix is seen. No abdominal wall defect is seen. No bony destructive lesion is observed. Impression: There are small calcific fragments at the cortical medullary junction of the upper pole of the left kidney which may be post-treatment stone fragments. The largest of these is 4 mm in diameter. Hydronephrosis noted previously has resolved. The large UPJ stone is no longer visible. Stable bilateral pulmonary nodules. Electronically Signed by Timothy Pierre MD 03/23/2019 08:34 A
== END ==
LOC: M RAD 17:46
PROVIDERS: ATTEND Nurse Practitioner Family
DX: N20.0 Calculus of kidney (principal); R91.8 Other nonspecific abnormal finding of lung field

== ENCOUNTER → 2019-04-18 | Outpatient (CLI) | payer OTHER ==
[2019-04-18 11:52] LABS: IONIZED CALCIUM 4.7 MG/DL (4.5-5.3)
[2019-04-18 12:26] LABS: BLOOD UREA NITROGEN 18 MG/DL (7-18); CARBON DIOXIDE LEVEL 27 MEQ/L (21-32); CHLORIDE LEVEL 106 MEQ/L (98-107); GLOMERULAR FILTRATION RATE > 60.0 (>60); GLUCOSE, FASTING 102 MG/DL (70-100); POTASSIUM SERUM 4.4 MEQ/L (3.5-5.1); SODIUM LEVEL 142 MEQ/L (136-145); URIC ACID 6.9 MG/DL (3.5-7.2)
[2019-04-18 14:07] LABS: AMORPHOUS SEDIMENT SMALL (NEGATIVE); APPEARANCE, URINE CLEAR (CLEAR); BACTERIA, URINE AUTO NEGATIVE (NEGATIVE); BILIRUBIN, URINE AUTO NEGATIVE (NEGATIVE); BLOOD, URINE BLOOD NEGATIVE (NEGATIVE); COLOR, URINE YELLOW (YELLOW); GLUCOSE, URINE (UA) AUTO NEGATIVE (NEGATIVE); KETONE, URINE AUTO NEGATIVE (NEGATIVE); LEUKOCYTE ESTERASE, URINE AUTO NEGATIVE (NEGATIVE); MUCUS, URINE SMALL (NEGATIVE); NITRITE, URINE AUTO NEGATIVE (NEGATIVE); PROTEIN, URINE AUTO NEGATIVE (NEGATIVE); RBC, URINE AUTO 1 /HPF (0-3); SPECIFIC GRAVITY URINE AUTO 1.015 (1.002-1.035); SQUAMOUS EPITHELIAL CELL UR AU 0 /HPF (0-6); UROBILINOGEN, URINE AUTO 0.2 mg/dL (0.0-2.0); WBC, URINE AUTO 1 /HPF (0-3)
[2019-04-20 20:21] LABS: PTH INTACT 31.1 PG/ML (18.5-88.0)
== END ==
LOC: M SMT 08:25
PROVIDERS: ATTEND Nurse Practitioner Family
DX: N20.0 Calculus of kidney (principal)

== ENCOUNTER → 2019-08-28 | Outpatient (CLI) | payer OTHER ==
--- NOTE | 2019-08-28 10:06 | REPPI ---
KUB: Two views. History: Kidney stone. Comparison CT study March 22, 2019. Findings: The bowel gas pattern is normal. Psoas margins and flank stripes are intact. No mass or organomegaly is seen. There are small calcifications overlying the left 11th rib projecting over the left mid kidney. These correspond with the position and appearance of the intrarenal stones seen by CT study. No ureteral calculus is observed. Impression: Intrarenal nephrolithiasis left kidney. Electronically Signed by Timothy Pierre MD 08/28/2019 11:06 A
== END ==
LOC: M PLAIMG 08:21
PROVIDERS: ATTEND Nurse Practitioner Family
DX: N20.0 Calculus of kidney (principal)

== ENCOUNTER → 2022-12-23 | Outpatient (CLI) | payer OTHER | LOC: M WUC 14:51 | PROVIDERS: ATTEND Student in an Organized Health Care Education/Training Program | DX: M25.531 Pain in right wrist (principal) ==

== ENCOUNTER 2023-03-01 19:19 | Emergency (ER) | payer OTHER ==
[~2023-03-01] VITALS: Ht 175.3 cm; Wt 127.3 kg
[2023-03-01 19:20] VITALS: TEMP 98.6
[2023-03-01] MEDS ORDERED: TETRACAINE 0.5% OPHTH SOLN 4ML OD ONE (20:35)
[2023-03-01] MEDS ORDERED: FLUORESCEIN OPHTH 1MG STRIP OD ONE (20:35)
[2023-03-01] MEDS ORDERED: ERYTHROMYCIN OPHTH OINT OD ONE (21:45)
[2023-03-01] MEDS ORDERED: ERYT5OIN25 OP (21:47)
[2023-03-01 22:09] VITALS: BP 169/92; O2SAT 100
== END 2023-03-01 22:10 | disposition home or self-care (01) ==
LOC: M ED 19:19
DX: S05.01XA Injury of conjunctiva and corneal abrasion without foreign body, right eye, initial encounter (principal); X58.XXXA Exposure to other specified factors, initial encounter; Y92.89 Other specified places as the place of occurrence of the external cause; Y93.89 Activity, other specified; Y99.8 Other external cause status; Z79.899 Other long term (current) drug therapy

== ENCOUNTER 2023-03-23 13:05 | Emergency (ER) | payer OTHER ==
[~2023-03-23] VITALS: Ht 175.3 cm; Wt 123.5 kg
[~2023-03-23 13:05] MED LIST changes: +ERYT5OIN25 OP
[2023-03-23 14:19] LABS: BASO # 0.1 10^3/uL (0.0-0.2); BASO % 0.7 % (0.0-1.0); EOS # 0.1 10^3/uL (0.0-0.5); EOS % 0.8 % (0.0-3.0); HEMATOCRIT 47.9 % (42.0-52.0); HEMOGLOBIN 16.4 g/dl (13.5-17.5); LYMPH # 2.1 10^3/uL (1.5-5.0); LYMPH % 21.1 % (24.0-44.0); MEAN CORPUSCULAR HEMOGLOBIN 29.9 pg (27.0-33.0); MEAN CORPUSCULAR HGB CONC 34.2 g/dl (32.0-36.5); MEAN CORPUSCULAR VOLUME 87.2 fl (80.0-96.0); MONO # 0.8 10^3/uL (0.0-0.8); MONO % 7.9 % (2.0-8.0); NEUTROPHILS # 6.7 10^3/uL (1.5-8.5); NEUTROPHILS % 68.8 % (36.0-66.0); PLATELET COUNT, AUTOMATED 325 10^3/uL (150-450); RED BLOOD COUNT 5.49 10^6/uL (4.30-6.10); WHITE BLOOD COUNT 9.7 10^3/uL (4.0-10.0)
[2023-03-23 14:38] LABS: LIPASE 35 U/L (12-53)
[2023-03-23 14:40] LABS: ALBUMIN 4.4 G/DL (3.2-5.2); ALKALINE PHOSPHATASE 86 U/L (46-116); ALT/SGPT 41 U/L (7.0-40); AST/SGOT 29 U/L (<34); BILIRUBIN,DIRECT 0.3 MG/DL (<0.4); BLOOD UREA NITROGEN 13 MG/DL (9-23); CALCIUM LEVEL 9.9 MG/DL (8.5-10.1); CARBON DIOXIDE LEVEL 25 MMOL/L (20-31); CHLORIDE LEVEL 104 MMOL/L (98-107); CK-MB VALUE MASS 1.4 NG/ML (<3.6); CPK CREATINE PHOSPHOKINASE 226 U/L (46-171); CREATININE FOR GFR 0.91 MG/DL (0.70-1.30); GLOMERULAR FILTRATION RATE > 60.0 (>60); GLUCOSE, FASTING 97 MG/DL (60-100); MB/CK RELATIVE INDEX 0.61 (< OR =4); POTASSIUM SERUM 4.1 MMOL/L (3.5-5.1); SODIUM LEVEL 140 MMOL/L (136-145); TOTAL PROTEIN 7.3 G/DL (5.7-8.2)
[2023-03-23 14:44] LABS: FREE T4 1.48 NG/DL (0.89-1.76)
[2023-03-23 17:00] VITALS: BP 133/77; TEMP 97.9; O2SAT 99
== END 2023-03-23 17:05 | disposition home or self-care (01) ==
LOC: M ED 13:05
DX: R07.89 Other chest pain (principal); I10 Essential (primary) hypertension; F41.9 Anxiety disorder, unspecified; Z87.442 Personal history of urinary calculi; R91.8 Other nonspecific abnormal finding of lung field

== ENCOUNTER → 2023-08-01 | Outpatient (CLI) | payer OTHER ==
[~2023-08-01] MED LIST changes: -OXYB5TAB10 PO; +OXYB5TAB11 PO
[2023-08-01 09:03] LABS: IONIZED CALCIUM 4.9 MG/DL (4.5-5.3)
[2023-08-01 09:11] LABS: BASO # 0.1 10^3/uL (0.0-0.2); BASO % 0.5 % (0.0-1.0); EOS # 0.1 10^3/uL (0.0-0.5); EOS % 1.3 % (0.0-3.0); HEMATOCRIT 46.7 % (42.0-52.0); HEMOGLOBIN 15.6 g/dl (13.5-17.5); LYMPH # 3.2 10^3/uL (1.5-5.0); LYMPH % 34.3 % (24.0-44.0); MEAN CORPUSCULAR HEMOGLOBIN 29.8 pg (27.0-33.0); MEAN CORPUSCULAR HGB CONC 33.4 g/dl (32.0-36.5); MEAN CORPUSCULAR VOLUME 89.3 fl (80.0-96.0); MONO # 0.8 10^3/uL (0.0-0.8); MONO % 8.9 % (2.0-8.0); NEUTROPHILS % 54.5 % (36.0-66.0); PLATELET COUNT, AUTOMATED 329 10^3/uL (150-450); RED BLOOD COUNT 5.23 10^6/uL (4.30-6.10); WHITE BLOOD COUNT 9.2 10^3/uL (4.0-10.0)
[2023-08-01 09:29] LABS: HEMOGLOBIN A1c 5.3 % (4.0-6.0)
[2023-08-01 09:36] LABS: ALBUMIN 3.8 G/DL (3.2-5.2); ALKALINE PHOSPHATASE 71 U/L (46-116); ALT/SGPT 33 U/L (7.0-40); AST/SGOT 16 U/L (<34); BILIRUBIN,TOTAL 0.6 MG/DL (0.3-1.2); BLOOD UREA NITROGEN 18 MG/DL (9-23); CALCIUM LEVEL 9.3 MG/DL (8.5-10.1); CARBON DIOXIDE LEVEL 27 MMOL/L (20-31); CHLORIDE LEVEL 107 MMOL/L (98-107); CHOLESTEROL LEVEL 170 MG/DL (<200); CHOLESTEROL RISK RATIO 5.24 (<5); CREATININE FOR GFR 0.83 MG/DL (0.70-1.30); FREE T4 1.21 NG/DL (0.89-1.76); GLOMERULAR FILTRATION RATE > 60.0 (>60); GLUCOSE, FASTING 92 MG/DL (60-100); HDL CHOLESTEROL 32.4 MG/DL (>40); LDL CHOLESTEROL 115.2 MG/DL (<100); NON-HDL-C 137.6 MG/DL; POTASSIUM SERUM 4.1 MMOL/L (3.5-5.1); PTH INTACT 30.8 PG/ML (18.5-88.0); SODIUM LEVEL 141 MMOL/L (136-145); THYROID STIMULATING HORMONE 3.262 uIU/ML (0.55-4.78); TOTAL PROTEIN 6.7 G/DL (5.7-8.2); TRIGLYCERIDES LEVEL 112 MG/DL (<150)
== END ==
LOC: M LAB 08:38
PROVIDERS: ATTEND Physician Assistant
DX: I10 Essential (primary) hypertension (principal); E21.2 Other hyperparathyroidism

== ENCOUNTER → 2023-11-14 | Outpatient (CLI) | payer OTHER ==
[~2023-11-14] MED LIST changes: -OXYB5TAB11 PO; +OXYB5TAB14 PO
== END ==
LOC: M LAB 09:03
PROVIDERS: ATTEND Student in an Organized Health Care Education/Training Program
DX: Z01.83 Encounter for blood typing (principal)

== ENCOUNTER 2025-04-08 07:18 | Emergency (ER) | payer OTHER ==
[~2025-04-08] VITALS: Ht 172.7 cm; Wt 113.3 kg
[2025-04-08] MEDS ORDERED: LOSA50TA28 (07:26)
[2025-04-08 12:11] VITALS: BP 124/73; TEMP 97.4; O2SAT 98
== END 2025-04-08 12:19 | disposition home or self-care (01) ==
LOC: M ED 07:18
DX: M71.22 Synovial cyst of popliteal space [Baker], left knee (principal); I10 Essential (primary) hypertension; Z79.899 Other long term (current) drug therapy